=== PATIENT | female | born 1990 | race Asian ===

== ENCOUNTER 2019-07-14 06:05 | Emergency (ER) | payer OTHER ==
[~2019-07-14] VITALS: Ht 162.6 cm; Wt 61.2 kg
--- NOTE | 2019-07-14 06:55 | NUR ---
PT C/C EYE IRRITATION X1 DAY WITH BLURRY VISION TO. VSS. AOX4. NAD NOTED. RESP EVEN AND UNLABORED. STEADY GAIT. WILL CONTINUE TO MONITOR.
[2019-07-14] MEDS ORDERED: TETRACAINE HCL 2% OPHTHALIC 30 ML BOTTLE EACHEYE ONE (07:00)
[2019-07-14 07:04] VITALS: BP 109/77
== END 2019-07-14 07:06 | disposition home or self-care (01) ==
LOC: ER 06:09
DX: S05.01XA Injury of conjunctiva and corneal abrasion without foreign body, right eye, initial encounter (principal); X58.XXXA Exposure to other specified factors, initial encounter; Y93.9 Activity, unspecified; Y92.89 Other specified places as the place of occurrence of the external cause; Y99.8 Other external cause status